=== PATIENT | female | born 1995 | race Caucasian/White ===

== ENCOUNTER 2020-10-04 07:50 | Outpatient (CLI) | payer OTHER, SELFPAY ==
--- NOTE | ~2020-10-04 | XR_ITS ---
EXAMINATION: XR arthrogram shoulder LT EXAM DATE: 10/04/2020 09:54 INDICATION: Instability of left shoulder. Multiple dislocations. TECHNIQUE: A time-out was performed to verify the patient's name, date of , and procedure to b e performed. The procedure including the risks, benefits and alternatives were discussed with the pat ient. Risks discussed included bleeding and infection. The patient understood the risks and agreed to proceed. The skin overlying the left shoulder joint was prepped and draped in usual sterile fashion. Anesthetic was administered with 2 milliliters 1% lidocaine subcutaneously. A 22 G needle was adva nced under fluoroscopic guidance into the joint. A total of 10 mL of 1:200 of 529 mg/mL Multihance, 1:4 lidocaine, and 1:4 Omnipaque 240 was instilled. The needle was removed and the entry site was c leaned and dressed. There were no immediate complications. The DAP for this procedure was 0.4 Gycm2 . Pulsed dose reduction fluoroscopy was used with fluoroscopic time of 0.1 minutes. A total of 2 imag es obtained for the exam. The procedure was performed on 10/04/2020. FINDINGS: Real-time fluoroscopy demonstrates the needle and contrast in the left shoulder joint. IMPRESSION: Successful left shoulder joint injection for subsequent MRI exam. Reviewed, dictated and finalized at location A.
--- NOTE | ~2020-10-04 | MR_ITS ---
EXAMINATION: Additional imaging MR DATE: 10/09/2020 15:00 INDICATION: Left shoulder joint instability TECHNIQUE: Magnetic resonance imaging (MRI) of the left shoulder was performed following intra-artic ular gadolinium contrast injection and without intravenous contrast. Details of the glenohumeral join t injection have been dictated separately. Sequences included axial T2-weighted FS FSE, axial T1-alyson ghted FS FSE, coronal oblique T1-weighted FS FSE, coronal oblique T2-weighted FSE, sagittal T2-weight ed FS FSE, sagittal T1-weighted FSE, and ABER (abduction external rotation) T1-weighted FS FSE. Prior MR imaging including similar sequences obtained 5 days prior following an extra-articular unsuccessf ul attempted intra-articular contrast injection were also reviewed. COMPARISON: None. FINDINGS: Coracoacromial arch: The acromion undersurface is curved in morphology (type II). The coracoacromial ligament is normal. A cromial clavicular joint is normal. Rotator cuff: The supraspinatus, infraspinatus and teres minor tendons are normal. The subscapularis tendon is norm al. Normal rotator cuff muscle bulk and signal. Biceps tendon, glenoid labrum and glenohumeral cartilage: Long head of the biceps tendon is intact. Glenoid labrum is normal. Normal glenohumeral cartilage. Bones and other: Normal alignment with normal morphology to the glenoid. Normal marrow signal with no edema, fracture or abnormal marrow replacing process. No abnormal fluid signal in the subacromial/subdeltoid bursa to suggest bursitis. The deep subscapular recess appears somewhat patulous which may be due to suboptim al external rotation on the axillary images. The coracohumeral ligament, superior and middle glenohum eral ligaments as well as the anterior and posterior inferior glenohumeral ligaments appear normal. N o evident stretching or patulousness of the anterior inferior glenohumeral ligament on the ABER image s. IMPRESSION: 1. Normal left shoulder MRI arthrogram. Reviewed, dictated and finalized at location B.
--- NOTE | ~2020-10-04 | XR_ITS ---
EXAMINATION: Additional imaging XR DATE: 10/09/2020 13:54 INDICATION: Left shoulder joint instability. Previous dislocation. No prior surgery. TECHNIQUE: A time-out was performed to verify the patient's name, date of , and procedure to b e performed. The procedure including the risks, benefits, and alternatives was discussed with the pat ient. Risks discussed included bleeding and infection. The patient understood the risks and agreed to proceed. The skin overlying the left glenohumeral joint was prepped and draped in usual sterile fash ion. Anesthetic was administered with 1% lidocaine subcutaneously. A 22 G needle was advanced under fluoroscopic guidance into the joint. Subsequently, injectate consisting of 12 mL of 1:200 Multihan ce, 1:4 1% lidocaine, and 1:4 Omnipaque 240 was instilled. The needle was removed and the entry site was cleaned and dressed. There were no immediate complications. Fluoroscopy exposure time was 0.1 m inutes. The total number of images was 3. FINDINGS: Real-time fluoroscopy demonstrates the needle and contrast in the left glenohumeral joint. IMPRESSION: 1. Successful left glenohumeral joint injection of contrast for subsequent MR arthrography. Reviewed, dictated and finalized at location A. IMPRESSION: 1. Successful left glenohumeral joint injection of contrast for subsequent MR a rthrography.
--- NOTE | ~2020-10-04 | MR_ITS ---
EXAMINATION: MR shoulder LT w con DATE: 10/04/2020 11:10 INDICATION: Left shoulder instability. TECHNIQUE: Magnetic resonance imaging (MRI) of the left shoulder was performed following intra-articu lar gadolinium contrast injection and without intravenous contrast. Details of the glenohumeral joint injection have been dictated separately. Sequences included axial T2-weighted FS F SE, axial T1-weighted FS FSE, coronal oblique T1-weighted FS FSE, coronal oblique T2-weighted FSE, sa gittal T2-weighted FS FSE, sagittal T1-weighted FSE, and ABER (abduction external rotation) T1-weight ed FS FSE. Prior MR imaging including similar sequences obtained 5 days prior following an extra-[place] cular unsuccessful attempted intra-articular contrast injection were also reviewed. COMPARISON: None. FINDINGS: Coracoacromial arch: The acromion undersurface is curved in morphology (type II). The coracoacromial ligament is normal. A cromioclavicular joint is normal. Rotator cuff: The supraspinatus, infraspinatus and teres minor tendons are normal. The subscapularis tendon is norm al. Normal rotator cuff muscle bulk and signal. Biceps tendon, glenoid labrum and glenohumeral cartilage: Long head of the biceps tendon is intact. Glenoid labrum is normal. Normal glenohumeral cartilage. Bones and other: Normal alignment with normal morphology to the glenoid. Normal marrow signal with no edema, fracture or abnormal marrow replacing process. No abnormal fluid signal in the subacromial/subdeltoid bursa to suggest bursitis. The deep subscapular recess appears somewhat patulous which may be due to suboptim al external rotation on the axillary images. The coracohumeral ligament, superior and middle glenohum eral ligaments as well as the anterior and posterior inferior glenohumeral ligaments appear normal. N o evident stretching or patulousness of the anterior inferior glenohumeral ligament on the ABER image s. IMPRESSION: 1. Normal left shoulder MRI arthrogram. Reviewed, dictated and finalized at location A.
== END 2020-10-04 07:51 | disposition home or self-care (01) ==
DX: M25.312 Other instability, left shoulder (principal)
CPT/HCPCS: 23350; 73040; 73222; A9577; Q9966